=== PATIENT | male | born 1965 | race Asian ===

== ENCOUNTER 2017-03-10 01:01 | Emergency (ER) | payer OTHER, MEDICARE ==
[~2017-03-10] VITALS: Ht 167.6 cm; Wt 63.0 kg
[2017-03-10 01:12] VITALS: BP 161/70
== END 2017-03-10 02:14 | disposition left against medical advice (07) ==
LOC: ER 01:01
DX: J81.1 Chronic pulmonary edema (principal); I12.0 Hypertensive chronic kidney disease with stage 5 chronic kidney disease or end stage renal disease; N18.6 End stage renal disease; R06.2 Wheezing; Z99.2 Dependence on renal dialysis; I48.91 Unspecified atrial fibrillation
CPT/HCPCS: 99283